=== PATIENT | male | born 1950 | race Caucasian/White ===

== ENCOUNTER 2016-06-17 18:51 | Emergency (ER) | payer BC ==
[~2016-06-17] VITALS: Ht 165.1 cm; Wt 81.1 kg
[~2016-06-17 18:51] MED LIST: ASPCH81; ATEN-173 PO; CLX20; NXM/40 PO; [UNRECOGNIZED DRUG - OTHER]
[2016-06-17 18:53] VITALS: TEMP 36.5; Ht 165.1 cm; Wt 81.1 kg
[2016-06-17] MEDS ORDERED: MULT-513 PO (20:29)
[2016-06-17] MEDS ORDERED: ASPCH81X PO (20:29)
[2016-06-17] MEDS ORDERED: CHOL200010 PO (20:29)
[2016-06-17] MEDS ORDERED: WARF5TAB7 PO (20:29)
[2016-06-17] MEDS ORDERED: VGR50 PO (20:29)
[2016-06-17] MEDS ORDERED: CITA20TA4 PO (20:29)
[2016-06-17 20:38] VITALS: O2SAT 95
[2016-06-17 20:43] LABS: BASO % 0.5 %; BASO ABS # 0.04 K/uL (0-0.2); COMPLETE YES; EOS % 3.1 %; HEMATOCRIT 44.4 % (42-52); IG% 0.3 %; LYMPH % 32.1 %; LYMPH ABS # 2.49 K/uL (1.2-3.4); MEAN CELL VOLUME 87.2 fL (80-100); MEAN CORPUSCULAR HGB CONC 36.7 g/dl (32-36); MEAN PLATELET VOLUME 9.2 fL (7.4-10.4); MONO % 11.6 %; NEUT % 52.4 %; PLATELET COUNT 162 K/uL (130-400); RED BLOOD COUNT 5.09 M/uL (4.7-6.1); WHITE BLOOD COUNT 7.76 K/uL (4.8-10.8)
[2016-06-17] MEDS ORDERED: SODIUM CHLORIDE 0.9% 1000ML 1,000 ML IV ONE (20:45)
[2016-06-17] MEDS ORDERED: WARF5TAB90 PO (20:49)
[2016-06-17 20:54] LABS: INR 2.1 (0.9-1.1); PARTIAL THROMBOPLASTIN RATIO 1.4; PROTHROMBIN TIME (PATIENT) 23.3 SECONDS (9.0-12.0)
[2016-06-17 21:03] LABS: CALCIUM 8.6 mg/dl (8.5-10.1); CREATININE 1.1 mg/dl (0.60-1.40)
[2016-06-17 21:06] LABS: POTASSIUM 3.9 mmol/L (3.5-5.1)
[2016-06-17 21:17] LABS: ALB/GLOB RATIO 1.2 (0.9-2); CKMB/CK RATIO 1.4 (0-3.0); THYROID STIMULATING HORMONE 1.25 uIu/ml (0.300-4.500)
--- NOTE | 2016-06-17 21:53 | DIAGNOSTIC IMAGING REPORT ---
CHEST 2 VIEWS ROUTINE CLINICAL HISTORY: Left-sided chest pain. COMPARISON STUDY: Chest CT May 26, 2006. FINDINGS: Lung volumes are normal. Lungs are clear. There is no pneumothorax or pleural effusion. Cardiac size is at upper limits of normal. There is no evidence of pulmonary edema. IMPRESSION: No acute cardiopulmonary findings. Electronically signed by: Torsten Shea M.D. 06/17/2016 9:52 PM Dictated Date/Time: 06/17/2016 9:51 PM
[2016-06-17 22:30] VITALS: BP 145/83; PULSE 64; O2SAT 98
--- NOTE | 2016-06-18 17:20 | EMERGENCY ROOM VISIT NOTE ---
History First contact with patient: 20:27 Chief Complaint: CHEST PAIN Stated Complaint: CHEST PAIN Nursing Triage Summary: Pt complains of intermittent chest pain for 2 days. Pt went to [facility] and was sent over for further testing. Pt has history of HTN. History of Present Illness The patient is a 65 year old male who presents to the Emergency Room with complaints of intermittent left-sided chest pain off and on for the past 2 days. The patient has not had symptoms like this in the past. He went to a local urgent care clinic and referred him to the ER for evaluation. The patient states his discomfort is not related to exertion. He does not have palpitations or shortness of breath. The pain is generally underneath his left nipple without radiation. He has not had recent fever or chills. No URI symptoms. The patient is on warfarin for past history of DVT. He rates his current discomfort a 0/10 and has not taken anything additional for his symptoms. Review of Systems More than 10 systems were reviewed and otherwise negative with the exception of history of present illness. Past Medical/Surgical History No chronic medical disease Family History No pertinent family history Social History Smoking Status: Former Smoker Current/Historical Medications Scheduled Aspirin (Aspirin Chewable), 81 MG PO DAILY Atenolol (Tenormin), 25 MG PO DAILY Cholecalciferol (Vitamin D), 2,000 UNITS PO DAILY Citalopram Hydrobromide (Citalopram Hydrobromide), 1 TAB PO DAILY Esomeprazole Magnesium (Nexium), 40 MG PO DAILY Multivitamins/Minerals (Mvi With Minerals), 1 TAB PO DAILY Sildenafil Citrate (Viagra), 50 MG PO PRN Warfarin Sod (Jantoven), 2.5 MG PO 5XWK Warfarin Sodium (Coumadin), 5 MG PO 2XWK Allergies Coded Allergies: Meperidine (Unverified Adverse Reaction, Unknown, VOMITING, 06/17/16) Physical Exam Vital Signs Date Time Temp Pulse Resp B/P Pulse Ox O2 Delivery O2 Flow Rate FiO2 06/17/16 22:30 64 18 145/83 98 Room Air 06/17/16 20:39 51 18 152/99 98 Room Air 06/17/16 20:38 95 Room Air 06/17/16 20:37 53 06/17/16 18:53 36.5 54 16 179/113 98 Room Air Pain Rating (0-10): 0 Physical Exam VITALS: Vitals are noted on the nurse's note and reviewed by myself. Vital signs stable. GENERAL: Well-developed, well-nourished, white male, who is in no acute distress and resting comfortably. Patient is cooperative with the examination. HEAD: Normocephalic atraumatic. MOUTH: Mucous membranes moist. Tonsils are not enlarged. Pharynx without erythema, blood, or exudate. Uvula midline. Airway patent. NECK: Supple without nuchal rigidity. No lymphadenopathy. No thyromegaly. Cervical spine is nontender. HEART: Regular rate and rhythm without murmurs gallops or rubs. LUNGS: Clear to auscultation bilaterally without wheezes, rales or rhonchi. No retractions or accessory muscle use. MUSCULOSKELETAL: No muscle atrophy, erythema, or edema noted. Full range of motion without joint tenderness in all extremities. Medical Decision & Procedures ER Provider Diagnostic Interpretation: CHEST 2 VIEWS ROUTINE CLINICAL HISTORY: Left-sided chest pain. COMPARISON STUDY: Chest CT May 26, 2006. FINDINGS: Lung volumes are normal. Lungs are clear. There is no pneumothorax or pleural effusion. Cardiac size is at upper limits of normal. There is no evidence of pulmonary edema. IMPRESSION: No acute cardiopulmonary findings. Laboratory Results 06/17/16 20:30 Red Blood Count 5.09, Mean Corpuscular Volume 87.2, Mean Corpuscular Hemoglobin 32.0, Mean Corpuscular Hemoglobin Concent 36.7, Mean Platelet Volume 9.2, Neutrophils (%) (Auto) 52.4, Lymphocytes (%) (Auto) 32.1, Monocytes (%) (Auto) 11.6, Eosinophils (%) (Auto) 3.1, Basophils (%) (Auto) 0.5, Neutrophils # (Auto ) 4.07, Lymphocytes # (Auto) 2.49, Monocytes # (Auto) 0.90, Eosinophils # (Auto ) 0.24, Basophils # (Auto) 0.04 06/17/16 20:30 Test 06/17/16 20:30 06/17/16 22:26 White Blood Count 7.76 K/uL (4.8-10.8) Red Blood Count 5.09 M/uL (4.7-6.1) Hemoglobin 16.3 g/dL (14.0-18.0) Hematocrit 44.4 % (42-52) Mean Corpuscular Volume 87.2 fL (80-100) Mean Corpuscular Hemoglobin 32.0 pg (25-34) Mean Corpuscular Hemoglobin Concent 36.7 g/dl (32-36) Platelet Count 162 K/uL (130-400) Mean Platelet Volume 9.2 fL (7.4-10.4) Neutrophils (%) (Auto) 52.4 % Lymphocytes (%) (Auto) 32.1 % Monocytes (%) (Auto) 11.6 % Eosinophils (%) (Auto) 3.1 % Basophils (%) (Auto) 0.5 % Neutrophils # (Auto) 4.07 K/uL (1.4-6.5) Lymphocytes # (Auto) 2.49 K/uL (1.2-3.4) Monocytes # (Auto) 0.90 K/uL (0.11-0.59) Eosinophils # (Auto) 0.24 K/uL (0-0.5) Basophils # (Auto) 0.04 K/uL (0-0.2) RDW Standard Deviation 39.9 fL (36.4-46.3) RDW Coefficient of Variation 12.5 % (11.5-14.5) Immature Granulocyte % (Auto) 0.3 % Immature Granulocyte # (Auto) 0.02 K/uL (0.00-0.02) Prothrombin Time 23.3 SECONDS (9.0-12.0) Prothromb Time International Ratio 2.1 (0.9-1.1) Activated Partial Thromboplast Time 35.1 SECONDS (21.0-31.0) Partial Thromboplastin Ratio 1.4 Anion Gap 4.0 mmol/L (3-11) Est Creatinine Clear Calc Drug Dose 67.4 ml/min Estimated GFR () 82.4 Estimated GFR (Non- 71.1 BUN/Creatinine Ratio 18.0 (10-20) Calcium Level 8.6 mg/dl (8.5-10.1) Total Bilirubin 0.5 mg/dl (0.2-1) Aspartate Amino Transf (AST/SGOT) 30 U/L (15-37) Alanine Aminotransferase (ALT/SGPT) 36 U/L (12-78) Alkaline Phosphatase 70 U/L (45-117) Total Creatine Kinase 340 U/L (39-308) Creatine Kinase MB 4.7 ng/ml (0.5-3.6) Creatine Kinase MB Ratio 1.4 (0-3.0) Total Protein 7.6 gm/dl (6.4-8.2) Albumin 4.1 gm/dl (3.4-5.0) Globulin 3.5 gm/dl (2.5-4.0) Albumin/Globulin Ratio 1.2 (0.9-2) Lipase 332 U/L (73-393) Thyroid Stimulating Hormone (TSH) 1.250 uIu/ml (0.300-4.500) Bedside Troponin I 0.010 ng/ml (0-0.045) Medications Administered Medications (Trade) Dose Ordered Sig/Dusty Route Start Time Stop Time Status Last Admin Dose Admin Sodium Chloride (Nss 1000ml) 1,000 ml @ 999 mls/hr Q1H1M ONCE IV 06/17/16 20:45 06/17/16 21:45 DC 06/17/16 21:05 999 MLS/HR ECG Change: Sinus bradycardia @48 bpm Otherwise normal ECG When compared with ECG of 01-JUN-2010 15:11, Criteria for Inferior infarct are no longer Present ED Course Physical exam and history were performed. Nursing notes and EMR were reviewed. Patient appears to have left sided chest pain over the past 2 days. EKG was performed and was sinus bradycardia at 48 bpm without evidence of ischemia or ectopy. IV access was established and labs were obtained. The patient was hydrated with normal saline and chest x-ray was performed. The patient blood work is as above and was reviewed. He does not have a significant elevated white blood cell count, gross anemia, bandemia, or significant electrolyte imbalance. Lipase and transaminases are nondiagnostic. Troponin 2 was negative. The patient's INR is 2.1. I discussed options of care with the patient. 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 I offered admission to the hospital, but the patient had a strong preference for discharge home. I discussed the case with my attending physician, Dr. Muhammad, and we feel this is reasonable provided the patient have close follow-up with his PCP. I explained to the patient that he needs to follow with his primary care physician tomorrow for further care and management. The patient appears reasonable and understands the importance of returning to the ER with any new, worsening, or concerning symptoms. The patient rated his discomfort a 0/10 at the time of departure. The chart was completed utilizing [employer] Voice Recognition Software. Grammatical errors, random word insertions, pronoun errors, and incomplete sentences are an occasional consequence of this system due to software limitations, ambient noise, and hardware issues. Any formal questions or concerns about the content, text, or information contained within the body of this dictation should be directly addressed to the provider for clarification. . Medical Decision Differential diagnosis includes, but is not limited to: Myocardial infarction, dysrhythmia, pericarditis, pneumothorax, aortic aneurysm/dissection, DVT/PE, anxiety, GERD, PUD, electrolyte imbalance, thyroid disorder, pneumonia, bronchitis, pancreatitis, and others Impression Primary Impression: Non-cardiac chest pain Departure Information Dispostion Home / Self-Care Condition GOOD Referrals Pro,Sukhjinder Olivas M.D. (PCP) Forms HOME CARE DOCUMENTATION FORM, IMPORTANT VISIT INFORMATION Patient Instructions [facility] Additional Instructions You were seen and evaluated today on an emergency basis only. This is not a substitute for, or an effort to provide, complete comprehensive medical care. It is not possible to recognize and treat all injuries or illnesses in a single emergency department visit. For this reason it is recommended that you followup with your primary care physician next week for ongoing care and evaluation. Continue your medications as prescribed. You are welcome to return to the emergency department anytime with new, worsening, or concerning symptoms.
== END 2016-06-17 22:55 | disposition home or self-care (01) ==
LOC: C.EDB 18:53
DX: R07.89 Other chest pain (principal); Z87.891 Personal history of nicotine dependence; Z79.82 Long term (current) use of aspirin

== ENCOUNTER → 2016-10-13 | Outpatient (CLI) | payer BC ==
[~2016-10-13] MED LIST changes: -ASPCH81; +ASPCH81X PO; +CHOL200010 PO; +CITA20TA4 PO; -CLX20; +MULT-513 PO; +VGR50 PO; +WARF5TAB7 PO; +WARF5TAB90 PO; -[UNRECOGNIZED DRUG - OTHER]
--- NOTE | 2016-10-13 12:29 | DIAGNOSTIC IMAGING REPORT ---
ULTRASOUND KIDNEYS AND BLADDER CLINICAL HISTORY: Renal cysts. COMPARISON STUDY: Renal ultrasound dated 03/05/[address] dated 07/28/2011. TECHNIQUE: Real-time, grayscale, and color flow sonography of the kidneys and bladder is performed. Images are reviewed in the transverse and longitudinal planes. FINDINGS: Kidneys: The kidneys demonstrate mild cortical atrophy. The right kidney measures 11.0 x 5.2 x 4.0 cm and the left kidney measures 11.9 x 6.2 x 5.6 cm. There is no hydronephrosis. No shadowing renal calculi are identified. There are least 2 simple cysts in the left kidney measuring up to 3.7 cm. A subcentimeter cyst is noted in the right kidney. There is no sonographic evidence of contour deforming renal mass lesion. No perinephric fluid is identified. Bladder: The bladder wall appears mildly thickened and trabeculated suggesting chronic outlet obstruction. Bilateral ureteral jets were seen. Upper abdomen: Survey images of the liver show evidence of steatosis. IMPRESSION: 1. The kidneys demonstrate mild cortical atrophy and are without hydronephrosis. 2. Renal cyst as above. These were also seen on prior examinations. 3. Findings suggest chronic bladder outlet obstruction. Electronically signed by: Lew Lanier M.D. 10/13/2016 12:27 PM Dictated Date/Time: 10/13/2016 12:25 PM
== END | disposition home or self-care (01) ==
LOC: C.ULTR 11:44
PROVIDERS: ATTEND Internal Medicine
DX: N28.1 Cyst of kidney, acquired (principal)